=== PATIENT | male | born 1960 | race Caucasian/White ===

== ENCOUNTER 2019-06-21 10:04 | Emergency (ER) | payer MEDICAID ==
[~2019-06-21] VITALS: Ht 188 cm; Wt 102.1 kg
[2019-06-21 10:19] VITALS: BP_SYST 154
--- NOTE | 2019-06-21 11:46 | NUR ---
Patient to ER bed 3 to gown for evaluation. Side rails up. Report given to Roro MILLER.
[2019-06-21] MEDS ORDERED: NACL 0.9% 1,000 ML IV ONE (12:00)
--- NOTE | 2019-06-21 12:00 | NUR ---
pt arrives from home w/ c/o high BP 210/102. pt ahs no other c/o at the moment. radiation monitor placed
--- NOTE | 2019-06-21 12:10 | NUR ---
ER at bedside examining patient.
--- NOTE | 2019-06-21 12:32 | NUR ---
# 22 gauge angiocath placed to left hand . Use of asceptic technique. Opsite placed over site. Blood return noted. Blood for lab drawn from site. Flushed with 10 cc of normal saline. No evidence of infiltration noted. Patient tolerated well.
[2019-06-21 12:48] LABS: BASOPHILS # (AUTO) 0.1 K/uL (0.0-0.2); BASOPHILS % (AUTO) 0.6 % (0.0-2.0); EOSINOPHILS # (AUTO) 0.2 K/uL (0.0-0.4); EOSINOPHILS % (AUTO) 2.7 % (0.0-4.0); HEMATOCRIT 36.3 % (36-54); HEMOGLOBIN 12.1 g/dL (14.0-18.0); LYMPHOCYTES # (AUTO) 1.4 K/uL (1.0-5.5); MEAN CORPUSCULAR HEMOGLOBIN 29 pg (27-31); MEAN CORPUSCULAR HGB CONC 33 % (32-36); MEAN CORPUSCULAR VOLUME 87 fL (79.0-98.0); MONOCYTES # (AUTO) 0.9 K/uL (0.0-1.0); MONOCYTES % (AUTO) 10.8 % (1.7-9.3); NEUTROPHILS # (AUTO) 5.9 K/uL (1.8-7.7); NEUTROPHILS % (AUTO) 68.9 % (40.0-70.0); PLATELET COUNT (AUTO) 173 K/uL (130-430); RED BLOOD CELL COUNT(AUTO) 4.18 MIL/uL (4.2-6.2); RED CELL DISTRIBUTION WIDTH 14.5 % (9.0-15.0); WHITE BLOOD COUNT (AUTO) 8.5 K/uL (4.8-10.8)
[2019-06-21 12:57] LABS: CALCIUM 8.7 mg/dL (8.4-11.0); CREATININE 1.02 mg/dL (0.55-1.30); POTASSIUM 4.3 mmol/L (3.5-5.1)
--- NOTE | 2019-06-21 13:00 | NUR ---
NS currently infusing per MD order
[2019-06-21 13:08] LABS: INR 1.1 (0.80-1.20); PROTHROMBIN TIME 11.3 SECS (9.5-12.5)
[2019-06-21 13:16] LABS: BILIRUBIN,URINE NEGATIVE (NEGATIVE); CLARITY/URINE CLEAR (CLEAR); COLOR,URINE YELLOW (YELLOW); GLUCOSE,URINE NEGATIVE (NEGATIVE); KETONES,URINE NEGATIVE (NEGATIVE); LEUKOCYTE ESTERASE ,URINE NEGATIVE (NEGATIVE); NITRITE, URINE NEGATIVE (NEGATIVE); PROTEIN URINE NEGATIVE (NEGATIVE); UROBILINOGEN,URINE 0.2 (0.2-1.0)
[2019-06-21 13:18] LABS: ALBUMIN 3.6 g/dL (3.4-4.8); TOTAL BILIRUBIN 0.4 mg/dL (0.0-1.0)
--- NOTE | 2019-06-21 13:20 | NUR ---
pt getting labs drawn at the bedside
[2019-06-21 13:22] LABS: BLOOD, URINE TRACE (NEGATIVE)
[2019-06-21 13:26] LABS: BACTERIA,URINE RARE /HPF (None Seen); MUCUS,URINE 1+ /LPF (None Seen); RBC,URINE 0-3 /HPF (0-3); WBC,URINE 0-3 /HPF (0-3)
[2019-06-21 13:30] LABS: BARBITURATE, URINE NEGATIVE (NEG <=200); BENZODIAZEPINE, URINE NEGATIVE (NEG <=150); CANNABINOID, URINE NEGATIVE (NEG <=50); COCAINE, URINE NEGATIVE (NEG <=150); METHAMPHETAMINES SCREEN,URINE NEGATIVE (NEG <=500); OPIATE, URINE NEGATIVE (NEG <=100); PHENCYCLIDINE SCREEN,URINE NEGATIVE (NEG <=25); UR TRICYCLIC ANTIDEPRESSANTS NEGATIVE (NEG <=300); URINE AMPHETAMINE NEGATIVE (NEG <=500); URINE METHADONE NEGATIVE (NEG <=200); URINE OXYCODONE SCREEN NEGATIVE (NEG <=100); URINE PROPOXYPHENE SCREEN NEGATIVE (NEG <=300)
[2019-06-21] MEDS ORDERED: cloNIDine HCL 0.1 MG TABLET PO ONE ×2 (15:30→17:00)
--- NOTE | 2019-06-21 16:50 | NUR ---
pt speaking w/ Dr. Noe
[2019-06-21 18:30] VITALS: BP_SYST 153
--- NOTE | 2019-06-21 18:30 | NUR ---
Patient given written and verbal discharge instructions and verbalizes understanding. ER MD discussed with patient the results and treatment provided. Patient in stable condition. ID arm band removed. IV catheter removed intact and dressing applied, no active bleeding. Patient educated on pain management and to follow up with PMD. Pain Scale 0/10 Opportunity for questions provided and answered. Medication side effect fact sheet provided.
== END 2019-06-21 18:30 | disposition home or self-care (01) ==
LOC: SED 10:04
DX: I11.0 Hypertensive heart disease with heart failure (principal); I50.9 Heart failure, unspecified; F15.10 Other stimulant abuse, uncomplicated; E11.9 Type 2 diabetes mellitus without complications; I25.2 Old myocardial infarction
CPT/HCPCS: 36415; 71045; 80053; 80307; 81000; 82150; 82550; 83605; 83690; 83880; 84484; 85025; 85610; 85730; 87040; 93005; 99284; J7030; J7040

== ENCOUNTER 2020-04-06 07:12 | Emergency (ER) | payer MEDICAID, SELFPAY ==
[~2020-04-06] VITALS: Ht 175.3 cm; Wt 99.8 kg
[2020-04-06 07:12] VITALS: BP_SYST 159
--- NOTE | 2020-04-06 07:12 | NUR ---
Placed in room 1 . Placed on engine monitor, blood pressure machine and pulse oximeter. To gown for exam. Side rails up.
--- NOTE | 2020-04-06 07:14 | NUR ---
Patient woke up this morning with chest pain /. Pain was releived by nitro that was given by EMS. Patient was recently discharged from [facility] and has extensive cardiac history.
[2020-04-06] MEDS ORDERED: NITROGLYCERIN 1 INCH (GM) OINT. TP ONE (07:20)
[2020-04-06] MEDS ORDERED: MORPHINE 4 MG/ML INJ. SYRINGE IVP ONE (07:20)
--- NOTE | 2020-04-06 07:33 | NUR ---
ER at bedside examining patient.
[2020-04-06 07:50] LABS: BASOPHILS # (AUTO) 0.1 K/uL (0.0-0.2); BASOPHILS % (AUTO) 1.1 % (0.0-2.0); EOSINOPHILS # (AUTO) 0.2 K/uL (0.0-0.4); EOSINOPHILS % (AUTO) 2.3 % (0.0-4.0); HEMATOCRIT 40.1 % (36-54); HEMOGLOBIN 13.5 g/dL (14.0-18.0); LYMPHOCYTES # (AUTO) 1.3 K/uL (1.0-5.5); MEAN CORPUSCULAR HEMOGLOBIN 29 pg (27-31); MEAN CORPUSCULAR HGB CONC 34 % (32-36); MEAN CORPUSCULAR VOLUME 85 fL (79.0-98.0); MONOCYTES # (AUTO) 0.5 K/uL (0.0-1.0); MONOCYTES % (AUTO) 7.6 % (1.7-9.3); NEUTROPHILS # (AUTO) 5.1 K/uL (1.8-7.7); PLATELET COUNT (AUTO) 184 K/uL (130-430); RED BLOOD CELL COUNT(AUTO) 4.73 MIL/uL (4.2-6.2); RED CELL DISTRIBUTION WIDTH 14.1 % (9.0-15.0); WHITE BLOOD COUNT (AUTO) 7.2 K/uL (4.8-10.8)
[2020-04-06 08:09] LABS: ALBUMIN 3.4 g/dL (3.4-4.8); CREATININE 1.26 mg/dL (0.55-1.30); POTASSIUM 3.8 mmol/L (3.5-5.1); TOTAL BILIRUBIN 0.4 mg/dL (0.0-1.0)
[2020-04-06] MEDS ORDERED: MORPHINE 4 MG/ML INJ. SYRINGE ONE (08:16)
[2020-04-06] MEDS ORDERED: ALBU8.5H8 PO (08:57)
[2020-04-06] MEDS ORDERED: ASPI-524 PO (08:57)
[2020-04-06] MEDS ORDERED: LISI20TA PO (08:57)
[2020-04-06] MEDS ORDERED: METF-510 PO (08:57)
[2020-04-06] MEDS ORDERED: SPIR25TA PO (08:57)
[2020-04-06] MEDS ORDERED: CARV25TA55 PO (08:57)
[2020-04-06] MEDS ORDERED: BECL8.7A6 PO (08:57)
[2020-04-06] MEDS ORDERED: FURO-150 PO (08:57)
[2020-04-06] MEDS ORDERED: RIVA20TA PO (08:57)
[2020-04-06] MEDS ORDERED: LIP40 PO (08:57)
--- NOTE | 2020-04-06 08:57 | NUR ---
Medication reconciliation completed with information provided by [facility]. Any prior medication reconciliation on file was reviewed and corrected.
[2020-04-06] MEDS ORDERED: ENALAPRILAT DIHYDRATE 1.25 MG/ML VIAL IVP ONE (09:15)
--- NOTE | 2020-04-06 09:42 | NUR ---
Dr. Ramirez, [facility] Doc([facility]) , paged back to speak to Dr. Sarabia regarding pt status .
[2020-04-06] MEDS ORDERED: ENALAPRILAT DIHYDRATE 1.25 MG/ML VIAL ONE (10:00)
--- NOTE | 2020-04-06 10:01 | NUR ---
Spoke to Sandie, Dr. Maria will be speaking to Dr. Sarabia regarding pt status and possible transfer. #: [phone] requested fax of pt clinicals and facesheets for bed assignment. Sandie #: [phone]
--- NOTE | 2020-04-06 10:39 | NUR ---
TRANSFER INFO [facility] ACCEPTING: Dr. Nieves RM: 242B ALS ETA 1130 SPOKE TO VILLA
--- NOTE | 2020-04-06 10:55 | NUR ---
Patient to be transferred to [facility]. Is being transferred due to higher level of care. Receiving facility has accepting physician and available space. ER physician has signed transfer form. Patient or responsible libertarian has agreed to transfer and signed form. Patient belongings inventoried and will be sent with patient. Copy of nursing notes, lab reports, EKG, Physicians Orders and X-rays to be sent with patient. Report called to Pili at receiving facility. Receiving physician is Dr. Maria. [facility] ambulance service has been called for transfer. ETA is 1130.
--- NOTE | 2020-04-06 11:48 | NUR ---
Dry Transfer Worker Note Received a call from Xi with [facility], . Patient is connected with their services. Patient has had six hospitalizations in the last month. She believes patient will need a higher level of care, possibly a SNF. Patient lives in a motel. Met with patient at bedside in ED prior to transfer. Patient happily agreed to have his information shared with Xi as she is coordinating his housing and care. He also wanted his friend, Flaco [phone], to be notified of his transfer and request that Flaco obtain his belongings from [place] [id number]. Phoned Xi and told her of pending hospital transfer. She will follow up with the home health care social worker at [facility]. Xi stated that Flaco has patient belongings already. Notified patient of Xi's information.
[2020-04-06 12:00] VITALS: BP_SYST 145
--- NOTE | 2020-04-06 12:00 | NUR ---
Ambulance here to transfer patient.
== END 2020-04-06 12:00 | disposition short-term general hospital (02) ==
LOC: SED 07:12
DX: R07.89 Other chest pain (principal); I11.0 Hypertensive heart disease with heart failure; I50.9 Heart failure, unspecified; I48.91 Unspecified atrial fibrillation; I25.2 Old myocardial infarction; Z95.0 Presence of cardiac pacemaker; Z20.828 Contact with and (suspected) exposure to other viral communicable diseases; Z90.49 Acquired absence of other specified parts of digestive tract
CPT/HCPCS: 36415; 71045; 80053; 83880; 84484; 85025; 87426; 93005; 96374; 96375; 99285; J2270

== ENCOUNTER 2021-04-14 14:19 | Emergency (ER) | payer MEDICAID, SELFPAY ==
[~2021-04-14] VITALS: Ht 188 cm; Wt 99.8 kg
[~2021-04-14 14:19] MED LIST: ALBU8.5H8 PO; ASPI-524 PO; BECL8.7A6 PO; CARV25TA55 PO; FURO-150 PO; LIP40 PO; LISI20TA PO; METF-518 PO; RIVA20TA PO; SPIR25TA PO
[2021-04-14 14:34] VITALS: BP_SYST 154
--- NOTE | 2021-04-14 14:39 | NUR ---
Patient to ER bed 6 to gown for evaluation. Side rails up. Report given to MARNI MILLER.
--- NOTE | 2021-04-14 14:40 | NUR ---
First contact with patient. Patient awake, alert and oriented to person, place, time and situation. Reporting intermittent "palpitations" which self-resolve. Patient has history pacemaker placement and states he takes several medications daily. Patient placed on ekg monitor tech. VSS. Will continue to monitor.
--- NOTE | 2021-04-14 14:45 | NUR ---
Dr Vasquez to bedside to evaluate patient.
--- NOTE | 2021-04-14 15:00 | NUR ---
CXR being done at bedside
--- NOTE | 2021-04-14 15:21 | NUR ---
# 20 gauge angiocath placed to R hand. Use of asceptic technique. Opsite placed over site. Blood return noted. Blood for lab drawn from site. Flushed with 10 cc of normal saline. No evidence of infiltration noted. Patient tolerated well.
[2021-04-14 15:29] LABS: BASOPHILS # (AUTO) 0.1 K/uL (0.0-0.2); EOSINOPHILS # (AUTO) 0.2 K/uL (0.0-0.4); EOSINOPHILS % (AUTO) 3.7 % (0.0-4.0); HEMATOCRIT 31.3 % (36-54); HEMOGLOBIN 10.2 g/dL (14.0-18.0); LYMPHOCYTES # (AUTO) 1.1 K/uL (1.0-5.5); LYMPHOCYTES % (AUTO) 16.7 % (20.5-51.5); MEAN CORPUSCULAR HEMOGLOBIN 26 pg (27-31); MEAN CORPUSCULAR HGB CONC 33 % (32-36); MEAN CORPUSCULAR VOLUME 78 fL (79.0-98.0); MONOCYTES # (AUTO) 0.7 K/uL (0.0-1.0); MONOCYTES % (AUTO) 10.9 % (1.7-9.3); NEUTROPHILS # (AUTO) 4.3 K/uL (1.8-7.7); NEUTROPHILS % (AUTO) 67.7 % (40.0-70.0); PLATELET COUNT (AUTO) 198 K/uL (130-430); RED BLOOD CELL COUNT(AUTO) 3.99 MIL/uL (4.2-6.2); RED CELL DISTRIBUTION WIDTH 17.1 % (9.0-15.0); WHITE BLOOD COUNT (AUTO) 6.3 K/uL (4.8-10.8)
[2021-04-14 16:06] LABS: CALCIUM 8.1 mg/dL (8.4-11.0); CREATININE 1.21 mg/dL (0.55-1.30); POTASSIUM 4.4 mmol/L (3.5-5.1)
[2021-04-14 16:28] LABS: ALBUMIN 3.3 g/dL (3.4-4.8); TOTAL BILIRUBIN 0.4 mg/dL (0.0-1.0)
--- NOTE | 2021-04-14 16:43 | NUR ---
Dr Vasquez notified of patient's current BP. Pt is resting in bed; in no acute distress. No new orders received.
--- NOTE | 2021-04-14 18:12 | NUR ---
Patient resting in bed; in no acute distress. Awaiting trop results. BP remains elevated; otherwise VSS. Dr Vasquez aware. Will continue to monitor.
--- NOTE | 2021-04-14 19:00 | NUR ---
Report to Kathie MILLER. Patient resting in bed; in no acute distress.
--- NOTE | 2021-04-14 19:10 | NUR ---
RECEIVED REPORT FROM MARNI MILLER
[2021-04-14] MEDS ORDERED: IOHEXOL 350 mgI/mL, 150 ML INFUS..BTL IV ONE (19:39)
[2021-04-14] MEDS ORDERED: cloNIDine HCL 0.1 MG TABLET PO ONE (20:00)
--- NOTE | 2021-04-14 20:11 | NUR ---
CT CAME OVER STATING IV NEEDS TO BE IN THE AC, TRIED BY MYSELF AND OTHER RN UNABLE TO ACCESS. SURGICAL SUPPLIES STERILIZER TESTED IV THAT WAS ORINGINALY ON THE R WRIST, STATES IT IS SUFFICIENT TO USE FOR IV CONTRAST. PT SIGNED PAPERWORK FOR CT AND TAKEN VIA WHEELCHAIR. SURGICAL SUPPLIES STERILIZER TOOK CONSENT
--- NOTE | 2021-04-14 20:17 | NUR ---
PT HAS ALSO STATED HE WAS NO LONGER HAVING ANY CHEST PAIN OR PALPATATIONS AT THIS TIME. B/P REMAIN ELEVATED, MD MINER AWARE AND PLACED ORDERED, WILL MEDICATE WHEN RETURNS FROM CT SCAN
--- NOTE | 2021-04-14 20:28 | NUR ---
RETURNED FROM CT SCAN
--- NOTE | 2021-04-14 20:39 | NUR ---
PT PLACED BACK ON BEDSIDE MONITOR. WAS REQUESTING SOMTHTING TO EAT AND DRINK, OK'ED TO FEED PT PER DR DE LEON
--- NOTE | 2021-04-14 21:47 | NUR ---
PTS BLOOD PRESSURE REMAINS ELEVATED 184/101, P 83, MD KRISTOFER AWARE, NO NEW ORDERS ORDERED. PT REMAINS ON BEDSIDE MONITOR. RESTING COMFORTABLY IN BED.
[2021-04-14 22:12] VITALS: BP_SYST 148
--- NOTE | 2021-04-14 22:12 | NUR ---
Patient given written and verbal discharge instructions and verbalizes understanding. DR. KRISTOFER JJ MD discussed with patient the results and treatment provided. Patient in stable condition. ID arm band removed. IV catheter removed intact and dressing applied, no active bleeding. Patient educated on pain management and to follow up with PMD. Pain Scale 0/10. Opportunity for questions provided and answered. Medication side effect fact sheet provided.
== END 2021-04-14 22:12 | disposition home or self-care (01) ==
LOC: SED 14:19
DX: R07.89 Other chest pain (principal); I11.0 Hypertensive heart disease with heart failure; I50.9 Heart failure, unspecified; I25.2 Old myocardial infarction; I48.91 Unspecified atrial fibrillation; E11.9 Type 2 diabetes mellitus without complications; Z79.84 Long term (current) use of oral hypoglycemic drugs; Z79.899 Other long term (current) drug therapy
CPT/HCPCS: 36415; 71045; 71275; 72191; 74175; 76376; 80053; 82550; 83735; 83880; 84484; 85025; 93005; 99285; Q9967